=== PATIENT | female | born 1975 | race Caucasian/White ===

== ENCOUNTER 2020-12-24 13:46 | Emergency (ER) | payer OTHER, SELFPAY ==
[2020-12-24 13:56] VITALS: PULSE 66; RESP 16; TEMP 36.8; O2SAT 100
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
[2020-12-24] MEDS: Bupivacaine 0.5% Pres-Free 30 ML VIAL (15:15)
[2020-12-24 15:42] VITALS: PULSE 66; RESP 16; TEMP 36.8; O2SAT 100
== END 2020-12-24 15:50 | disposition home or self-care (01) ==
PROVIDERS: Emergency Provider Physician Assistant
DX: S81.812A Laceration without foreign body, left lower leg, initial encounter (principal); W22.8XXA Striking against or struck by other objects, initial encounter
CPT/HCPCS: 12001